=== PATIENT | male | born 1980 | race Two or more races ===

== ENCOUNTER 2021-10-31 20:59 | Emergency (ER) | payer MEDICAID, OTHER ==
[~2021-10-31] VITALS: Ht 160 cm; Wt 100.7 kg
[2021-10-31 23:06] LABS: Urine Bacteria NONE SEEN /hpf (None Seen); Urine Blood Negative /uL (Negative); Urine Mucus FEW (None Seen); Urine Specific Gravity 1.019 (1.001-1.035); Urine WBC <1 /hpf (0 - 3)
[2021-11-01 01:57] LABS: Albumin 3.6 g/dL (3.4-5.0); Calcium 8.7 mg/dL (8.5-10.1); Potassium 3.8 mmol/L (3.5-5.1)
[2021-11-01 01:58] LABS: Basophils # (auto) 0.1 10 ^3/uL (0-0.2); Basophils % (auto) 0.9 % (0.0-2.0); Eosinophils # (auto) 0.2 10 ^3/uL (0-0.8); Eosinophils % (auto) 2.1 % (0.0-7.0); Hematocrit 48.3 % (41.0-53.0); Hemoglobin 16.2 g/dL (13.5-17.5); Lymphocytes # (auto) 3.6 10 ^3/uL (0.4-5.4); Lymphocytes % (auto) 38.9 % (10.0-50.0); Mean Corpuscular Hemoglobin 29.4 pg (28.0-32.0); Mean Corpuscular Hgb Conc. 33.5 g/dL (32.0-36.0); Mean Corpuscular Volume 87.5 fL (80.0-100.0); Monocytes # (auto) 0.7 10 ^3/uL (0-1.3); Monocytes % (auto) 7.3 % (0.0-12.0); Neutrophils # (auto) 4.7 10 ^3/uL (1.6-8.6); Neutrophils % (auto) 50.8 % (37.0-80.0); Nucleated Red Blood Cells % 0.1 %; Red Blood Cells 5.52 10^6/uL (4.5-5.90); Red Cell Distribution Width 13.6 % (11.8-14.3); White Blood Cell 9.3 10^3/uL (4.4-10.8)
[2021-11-01 02:06] LABS: BUN/Creatinine Ratio 17.1; Bilirubin, Total 0.5 mg/dL (0.2-1.0); Magnesium 2.3 mg/dL (1.6-2.6); Total Protein 7.4 g/dL (6.4-8.2)
[2021-11-01 03:21] VITALS: BP 147/92
== END 2021-11-01 03:26 | disposition home or self-care (01) ==
LOC: ER 21:01 → EDBD 21:01 → ER 11-01 03:26
DX: K52.9 Noninfective gastroenteritis and colitis, unspecified (principal)
CPT/HCPCS: 36415; 80053; 81001; 83605; 83690; 83735; 85025